=== PATIENT | female | born 1985 | race Two or more races ===

== ENCOUNTER 2020-07-01 14:15 | Inpatient (IN) | payer OTHER ==
[~2020-07-01] VITALS: Ht 165.1 cm; Wt 89.8 kg
[2020-07-22] MEDS ORDERED: INTEGRA F CAPS1 EAC1 (08:58)
[2020-07-22] MEDS ORDERED: PRENATAL + DHA1 EAC1 PO (08:59)
== END 2020-07-23 10:48 | disposition home or self-care (01) | DRG 807 ==
LOC: LDR 07-21 02:26 → OB/GYN 07-21 02:26
PROVIDERS: ADMIT Obstetrics & Gynecology Maternal & Fetal Medicine; ATTEND Obstetrics & Gynecology Maternal & Fetal Medicine
PROC: 10E0XZZ Delivery of Products of Conception, External Approach (ICD-10-PCS; principal; 2020-07-21)
PROC: 4A0HXFZ Measurement of Products of Conception, Cardiac Rhythm, External Approach (ICD-10-PCS; 2020-07-21)
PROC: 10D07Z6 Extraction of Products of Conception, Vacuum, Via Natural or Artificial Opening (ICD-10-PCS; 2020-07-21)
DX: O63.1 Prolonged second stage (of labor) (principal); Z37.0 Single live birth; O66.5 Attempted application of vacuum extractor and forceps; Z3A.39 39 weeks gestation of pregnancy

== ENCOUNTER 2025-02-11 12:39 | Outpatient (CLI) | payer OTHER ==
[~2025-02-11 12:39] MED LIST: INTEGRA F CAPS1 EAC1; PRENATAL + DHA1 EAC1 PO
== END 2025-02-11 13:39 | disposition home or self-care (01) ==
LOC: NST 12:39
PROVIDERS: ATTEND Obstetrics & Gynecology
DX: Z34.83 Encounter for supervision of other normal pregnancy, third trimester (principal)

== ENCOUNTER 2025-02-18 12:15 | Outpatient (CLI) | payer OTHER ==
[2025-02-18 11:27] VITALS: BP 120/77
== END 2025-02-18 12:30 | disposition home or self-care (01) ==
LOC: NST 12:15
PROVIDERS: ATTEND Obstetrics & Gynecology
DX: Z3A.36 36 weeks gestation of pregnancy (principal)

== ENCOUNTER 2025-03-04 00:42 | Inpatient (IN) | payer OTHER ==
[2025-03-03 23:38] VITALS: BP 135/85
[2025-03-04] VITALS (10 sets, daily range): BP systolic 126–144; BP diastolic 76–95
[2025-03-04] MEDS ORDERED: BUDEO.25 IH (01:19)
[2025-03-04] MEDS ORDERED: PROAIR RESPICL90 MCG (01:19)
[2025-03-04] MEDS ORDERED: RINGERS SOLUTION,LACTATED 1,000 ML IV SCH (01:30)
[2025-03-04] MEDS ORDERED: MORPHINE SULFATE 4 MG/ML VIAL IV PRN (01:30)
[2025-03-04 01:32] LABS: MEAN CELL VOLUME 82.5 fL (80.00-100.00); MEAN CORPUSCULAR HEMOGLOBIN 27.5 pg (27.00-32.0); MEAN CORPUSCULAR HGB CONC 33.3 g/dl (32.0-36.0); PLATELET COUNT 293 K/uL (150-450); RED CELL DISTRIBUTION WIDTH 15.2 % (11.5-14.5)
[2025-03-04] MEDS ORDERED: ERYTHROMYCIN BASE OPHT 1GM EACH TUBE OP ONE (01:38)
[2025-03-04] MEDS ORDERED: CHLORHEXIDINE GLUCONATE 120 ML BOTTLE TOP ONE (01:38)
[2025-03-04] MEDS ORDERED: OXYTOCIN 20 UNITS/1000ML RL PIGGYBAG IV ONE (01:38)
[2025-03-04] MEDS ORDERED: LIDOCAINE HCL 1% 10ML VIAL ONE (01:38)
[2025-03-04 01:58] LABS: INR 0.94; PARTIAL THROMBOPLASTIN TIME 26.5 SECONDS (22.0-34.0); PROTHROMBIN TIME 10.3 SECONDS (9.0-11.5)
[2025-03-04 02:02] LABS: ALBUMIN 2.6 gm/dL (3.4-5.0); BILIRUBIN TOTAL 0.21 mg/dL (0.3-1.2); CALCIUM 9.1 mg/dL (8.5-10.1); CREATININE SERUM 0.46 mg/dL (0.55-1.02); GFR 152.03; GLOBULINA 3.7 G/DL (2.4-3.5); POTASSIUM 3.93 mEq/L (3.5-5.1); TOTAL PROTEIN 6.3 gm/dL (6.4-8.2)
[2025-03-04] MEDS ORDERED: HYDROGEN PEROXIDE 473 ML BOTTLE TOP ONE (02:03)
[2025-03-04] MEDS ORDERED: OXYTOCIN 1,000 ML IV SCH (02:30)
[2025-03-04] MEDS ORDERED: CHLORHEXIDINE GLUCONATE 120 ML BOTTLE TOP SCH (02:30)
[2025-03-04] MEDS ORDERED: ACETAMINOPHEN 500 MG GEL..CAP PO PRN (02:30)
[2025-03-04 18:39] LABS: HEMATOCRIT 31.6 % (36.0-45.00); HEMOGLOBIN 10.3 g/dL (12.0-15.00); MEAN CORPUSCULAR HEMOGLOBIN 27.2 pg (27.00-32.0); MEAN CORPUSCULAR HGB CONC 32.8 g/dl (32.0-36.0); PLATELET COUNT 273 K/uL (150-450); RED CELL DISTRIBUTION WIDTH 15.3 % (11.5-14.5)
[2025-03-04] MEDS ORDERED: KETOROLAC TROMETHAMINE 10 MG TABLET PO SCH (21:15)
[2025-03-05 05:00] VITALS: BP 110/75
[2025-03-05 12:22] VITALS: BP 111/72
[2025-03-05 16:00] VITALS: BP 131/84
[2025-03-06 00:09] VITALS: BP 131/80
[2025-03-06 05:00] VITALS: BP 121/70
[2025-03-06 08:00] VITALS: BP 126/80
== END 2025-03-06 16:17 | disposition home or self-care (01) | DRG 807 ==
LOC: OB/GYN 00:42 → LDR 00:42 → OB/GYN 03:27
PROVIDERS: ADMIT Obstetrics & Gynecology; ATTEND Obstetrics & Gynecology
PROC: 10E0XZZ Delivery of Products of Conception, External Approach (ICD-10-PCS; principal; 2025-03-04)
PROC: 0UQG7ZZ Repair Vagina, Via Natural or Artificial Opening (ICD-10-PCS; 2025-03-04)
PROC: 4A1HXCZ Monitoring of Products of Conception, Cardiac Rate, External Approach (ICD-10-PCS; 2025-03-04)
DX: O71.4 Obstetric high vaginal laceration alone (principal); Z37.0 Single live birth; Z3A.38 38 weeks gestation of pregnancy